=== PATIENT | male | born 1985 | race Caucasian/White ===

== ENCOUNTER 2016-06-28 13:01 | Day surgery (SDC) | payer OTHER ==
[2016-06-28] MEDS ORDERED: Diphtheria,Pertussis(Acell),Tetanus Vaccine 0.5 ML SDV IM ONE (13:53)
--- NOTE | 2016-06-28 13:59 | EDM.PDOC ---
ED HPI Skin/Rash - General Chief Complaint: Laceration Stated Complaint: LACERATION LT HAND Time Seen by Provider: 06/28/16 13:30 Source: Reports: Patient History Limitations: Reports: No limitations - History of Present Illness INITIAL COMMENTS - FREE TEXT/NARRATIVE: c/o L hand lac cutting a strap with a razor, sliced into his thenar eminence deep into the muscle d/w Dr Landon from ortho who examined pt and plans to take him back to ED, he requested pre-op clearance for conscious sedation dx'ed as "almost prediabetic" last yr, lost some wt and went on a diet and decided not to take the metformin that he had been prescribed PCP: Sandra Calhoun at [facility] PMH: mild anxiety, depression, elevated blood glucose PSH: choly meds: Effexor, not taking metformin which was prescribed last yr all: nka SH: smokes 1 ppd, no street drugs in 10y, rare alcohol ROS: getting over a slight cold, last Td 9y ago when he entered the , last ate 2 cups yogurt at 9, BS 81 now - Related Data Allergies Allergy/AdvReac Type Severity Reaction Status Date / Time No Known Allergies Allergy Verified 06/28/16 13:29 Home Meds: Ambulatory Orders Medication Instructions Recorded Confirmed Venlafaxine [Effexor XR] 150 mg PO DAILY 06/28/16 06/28/16 Social & Family History - Tobacco Use Smoking Status *Q: Current Every Day Smoker Years of Tobacco use: 12 Packs/Tins Daily: 1 Used Tobacco, but Quit: No Second Hand Smoke Exposure: Yes - Caffeine Use Caffeine Use: Reports: Soda - Recreational Drug Use Recreational Drug Use: No ED ROS GENERAL - Review of Systems Review Of Systems: See Below Constitutional: Reports: no symptoms HEENT: Reports: Rhinitis Respiratory: Reports: no symptoms Cardiovascular: Reports: No symptoms Endocrine: Reports: no symptoms GI/Abdominal: Reports: No symptoms : Reports: no symptoms Musculoskeletal: Reports: no symptoms Skin: Reports: wound Neurological: Reports: no symptoms Hematologic/Lymphatic: Reports: no symptoms Immunologic: Reports: no symptoms ED EXAM, SKIN/RASH Exam: See Below Exam Limited By: No limitations General Appearance: alert, WD/WN, no apparent distress Ears: normal external exam Nose: other (slight swell b/l and minimal mucus) Throat/Mouth: Normal inspection, Normal lips, Normal teeth, Normal gums, Normal oropharynx, Normal voice, No airway compromise Head: atraumatic, normocephalic Neck: normal inspection, supple, non-tender, full range of motion Respiratory/Chest: no respiratory distress, lungs clear, normal breath sounds, no accessory muscle use, chest non-tender Cardiovascular: normal peripheral pulses, regular rate, rhythm, no edema, no gallop, no murmur, no rub GI/Abdominal: normal bowel sounds, soft, non tender, no distention, no mass Back Exam: normal inspection, full range of motion, NT Extremities: normal inspection, normal range of motion, non-tender, no pedal edema, normal capillary refill Neurological: alert, oriented, CN II-XII intact, normal cognition, normal gait, no motor/sensory deficits Psychiatric: normal affect, normal mood Skin: Other (deep horizontal lac on the lateral aspect of his thenar eminence about 1 cm below IP, 1 cm deep, sensation is intact distal, full abduction/ adduction, flexes and touches his 5th MCP, extension past plane of metacarpals limited by pain and muscle weakness) Lymphatic: no adenopathy Course - Vital Signs Last Recorded V/S: Last Vital Signs Temp 37.0 C 06/28/16 14:45 Pulse 76 06/28/16 14:45 Resp 18 06/28/16 14:45 BP 135/90 06/28/16 14:45 Pulse Ox 97 06/28/16 14:45 - Orders/Labs/Meds Orders: Active Orders 24 hr Category Date Time Status Patient Status [ADT] Routine ADT 06/28/16 14:07 Active Blood Glucose Check, Bedside [RC] ONETIME Care 06/28/16 13:56 Active Patient to Empty Bladder [RC] ASDIRECTED Care 06/28/16 14:07 Active Vaccines to be Administered [RC] PER UNIT ROUTINE Care 06/28/16 13:53 Active Verify Patient Consent Obtain [RC] ASDIRECTED Care 06/28/16 14:07 Active Hand Comp Min 3V Lt [CR] Routine Exams 06/28/16 14:09 Taken Lactated Ringers [Ringers, Lactated] 1,000 ml Med 06/28/16 14:15 Active IV ASDIRECTED Sodium Chloride 0.9% [Saline Flush] Med 06/28/16 14:07 Active 10 ml FLUSH ASDIRECTED PRN Peripheral IV Insertion Adult [OM.PC] Routine Oth 06/28/16 14:07 Ordered Resuscitation Status Routine Resus Stat 06/28/16 14:07 Ordered Medication Orders Lactated Ringer's (Ringers, Lactated) 1,000 mls @ 125 mls/hr IV ASDIRECTED ARI Last Admin: 06/28/16 14:57 Dose: 125 mls/hr Sodium Chloride (Saline Flush) 10 ml FLUSH ASDIRECTED PRN PRN Reason: Keep Vein Open Labs: Laboratory Tests 06/28/16 Range/Units 14:09 POC Glucose 81 (80-116) mg/dL Meds: Medications Generic Name Dose Route Start Last Admin Trade Name Freq PRN Reason Stop Dose Admin Lactated Ringer's 1,000 mls @ 125 mls/hr 06/28/16 14:15 06/28/16 14:57 Ringers, Lactated IV 125 mls/hr ASDIRECTED ARI Administration Sodium Chloride 10 ml 06/28/16 14:07 Saline Flush FLUSH ASDIRECTED PRN Keep Vein Open Discontinued Medications Generic Name Dose Route Start Last Admin Trade Name Freq PRN Reason Stop Dose Admin Bupivacaine HCl 30 ml 06/28/16 15:22 06/28/16 15:22 Marcaine 0.25% .XX 06/28/16 15:23 30 ml .STK-MED ONE Administration Cefazolin Sodium 1 gm 06/28/16 15:22 06/28/16 15:22 Ancef .XX 06/28/16 15:23 1 gm .STK-MED ONE Administration Diphtheria/Tetanus/Acell Pertussis 0.5 ml 06/28/16 13:53 06/28/16 14:26 Adacel IM 06/28/16 13:54 0.5 ml .ONCE ONE Administration - Re-Assessments/Exams Free Text/Narrative Re-Assessment/Exam: 06/28/16 14:15 no apparent tendon or nerve injury based on exam, muscle bundle however is exposed and transected, unable to see base of lac without anesthesia Free Text/Narrative Re-Assessment/Exam: 06/28/16 15:07 transferred to care of Dr Landon who will do repair in [place] Departure - Departure Time of Disposition: 15:06 Disposition: DC/Tfer to Other 70 Condition: good Clinical Impression: Laceration of left hand - My Orders Last 24 Hours: My Active Orders 06/28/16 13:53 Vaccines to be Administered [RC] PER UNIT ROUTINE 06/28/16 13:56 Blood Glucose Check, Bedside [RC] ONETIME 06/28/16 14:09 Hand Comp Min 3V Lt [CR] Routine - Assessment/Plan Last 24 Hours: My Active Orders 06/28/16 13:53 Vaccines to be Administered [RC] PER UNIT ROUTINE 06/28/16 13:56 Blood Glucose Check, Bedside [RC] ONETIME 06/28/16 14:09 Hand Comp Min 3V Lt [CR] Routine
[2016-06-28] MEDS ORDERED: Sodium Chloride 0.9% 10 ML Syringe FLUSH PRN (14:07)
[2016-06-28] MEDS ORDERED: Lactated Ringers 1,000 ML IV SCH (14:15)
[2016-06-28] MEDS ORDERED: Lactated Ringers 1,000 ML IV ONE (15:00)
[2016-06-28] MEDS ORDERED: ceFAZolin 1 GM Vial IV ONE (15:00)
[2016-06-28] MEDS ORDERED: fentaNYL 100 MCG/2 ML SDV IV ONE (15:00)
[2016-06-28] MEDS ORDERED: Propofol 200 MG/20 ML SDV IV ONE (15:00)
[2016-06-28] MEDS ORDERED: Ketorolac 30 MG/ML SDV IVPUSH ONE (15:00)
[2016-06-28] MEDS ORDERED: Midazolam 1 MG/ML 2 ML SDV IV ONE (15:00)
[2016-06-28] MEDS ORDERED: Bupivacaine 0.25% 30 ML SDV ONE (15:22)
[2016-06-28] MEDS ORDERED: ceFAZolin 1 GM Vial ONE (15:22)
[2016-06-28 18:52] VITALS: BP 123/59
--- NOTE | 2016-06-28 19:21 | CONS ---
DATE OF CONSULTATION: 06/28/2016 PROBLEM: Laceration left thumb. HISTORY OF PRESENT ILLNESS: This gentleman was working today and slashed himself with a razor or the volar radial aspect of the first metacarpal. He presented to the emergency room and Dr. Acevedo consulted me for an evaluation. The patient states he is healthy in all regards and has no allergies. Sensation appears to be intact. He is able to flex the tip of the thumb. He is able to oppose the thumb to the base of the little finger and has good adduction, slightly weak abduction. There was only a small amount of bleeding. On examination, the incision is about a 2 cm or slightly more in the muscle belly of what appears to be the abductor flexor pollicis is sticking through the skin laceration site. Because of the greasy dirty nature of his work, and a 2 cm incision with a large part of the muscle showing, I felt that it would be prudent to the take him to the operating room so we could do a thorough irrigation and debridement, where he is comfortable, and then evaluate the full extent of the injury. We will also start him on IV antibiotics and send him home with oral antibiotics with precautions that should any increasing pain, redness, temperature, sign of infection arise and return immediately to the emergency room. Otherwise, I will see him on Saturday. The patient understands the risks, complications, prognosis, and expectations, and wishes to proceed. /[id number] 1914 SARAH BETH/MARILYN MTDD
--- NOTE | 2016-06-28 22:46 | OR ---
DATE OF OPERATION: 06/28/2016 SURGEON: Fercho Landon MD PREOPERATIVE DIAGNOSIS: Near complete tear of flexor abductor pollicis tendon, left thumb. POSTOPERATIVE DIAGNOSIS: Near complete tear of flexor abductor pollicis tendon, left thumb. PROCEDURE PERFORMED: 1. Irrigation and debridement of 3 cm laceration volar radial aspect, left thumb. 2. Repair of near complete flexor pollicis brevis tendon, left thumb. DESCRIPTION OF PROCEDURE: The patient was taken to the operating room and 2 g of Ancef was given. The tourniquet was then placed on the left arm near the axillary border once he was comfortable in a supine position and a MAC anesthetic had been performed. We then soaked his hand in a combination of Betadine and water and cleaned up the grease on his hand and the dry blood. Once this was done, a sterile ChloraPrep was performed. Sterile draping procedure was then carried out. The incision was measured and was approximately 3 cm in length. The muscle was approximately 80% cut. We irrigated with approximately 300 mL of sterile normal saline with Ancef. The patient then had the sheath repaired of the flexor pollicis brevis tendon with interrupted 3-0 Vicryl. 3-0 nylon was then placed in an interrupted vertical mattress and horizontal mattress configuration for closure of the skin. Skin was cleansed and dried. Sterile dressings applied. Thumb positioned in a thumb gauntlet splint. COMPLICATIONS: None. ESTIMATED BLOOD LOSS: Less than 5 mL. ANESTHESIA: 1. MAC anesthetic. 2. Prior to doing the irrigation and debridement, we injected the area with 0.5% plain Marcaine. /[id number] SARAH BETH/MARILYN LLAMAS
--- NOTE | 2016-06-29 09:39 | CR ---
INDICATION: Deep laceration thenar eminence area. LEFT HAND: Three views of the left hand revealed bandages overlying the first metacarpal area. A fracture, dislocation, or other significant bone or joint abnormality was not identified. MTDD
== END 2016-06-28 17:28 | disposition home or self-care (01) ==
LOC: FB.ED 13:01 → FB.SDS 13:52 → FB.MS 16:09 → FB.SDS 17:28
PROVIDERS: ATTEND Orthopaedic Surgery
DX: S66.022A Laceration of long flexor muscle, fascia and tendon of left thumb at wrist and hand level, initial encounter (principal); F41.9 Anxiety disorder, unspecified; F32.9 Major depressive disorder, single episode, unspecified; R73.9 Hyperglycemia, unspecified; Z79.899 Other long term (current) drug therapy; X78.8XXA Intentional self-harm by other sharp object, initial encounter; F17.210 Nicotine dependence, cigarettes, uncomplicated
CPT/HCPCS: 26356; 73130; 82962; 90715; 99000; A4217; J0690; J7120; J1885; J2250; J2704; J3010; J3490